=== PATIENT | male | born 1980 | race Caucasian/White ===

== ENCOUNTER 2018-08-01 16:23 | Emergency (ER) | payer SELFPAY ==
[~2018-08-01] VITALS: Ht 170.2 cm; Wt 80.0 kg
[~2018-08-01 16:23] MED LIST: BACTRIM DS1 TAB PO; CEPHALEXIN500 MG PO; FLEXERIL OR; LOPRESSOR100 MG OR; NAPROSYN500 MG OR; ULTRAM50 M1 PO
[2018-08-01] MEDS ORDERED: PERCOCET 10/31 COMBO PO (18:24)
[2018-08-01] MEDS ORDERED: AMOXICILLIN500 MG PO (18:24)
[2018-08-01 18:28] VITALS: BP 152/77
== END 2018-08-01 19:01 | disposition home or self-care (01) | DRG 159 ==
LOC: ED 16:23
PROC: 0C960ZZ Drainage of Lower Gingiva, Open Approach (ICD-10-PCS; principal; 2018-08-01)
DX: K04.7 Periapical abscess without sinus (principal); K02.9 Dental caries, unspecified; I10 Essential (primary) hypertension; F17.210 Nicotine dependence, cigarettes, uncomplicated

== ENCOUNTER 2020-09-29 15:22 | Emergency (ER) | payer SELFPAY ==
[~2020-09-29 15:22] MED LIST changes: +AMOXICILLIN500 MG PO; +PERCOCET 10/31 COMBO PO
[2020-09-29 17:19] LABS: HEMATOCRIT 41.8 % (39.0-50.0); HEMOGLOBIN 13.4 g/dl (14.0-18.0); IMMATURE GRANULOCYTES 0.7 % (0.0-5.0); MEAN CELL VOLUME 84.6 fL CALC (80.0-100.0); MEAN CORPUSCULAR HGB 27.1 pG CALC (26.0-32.0); MEAN CORPUSCULAR HGB CONC 32.1 g/dL CAL (32.0-36.0); NEUT# 2.32 thou/uL (1.82-7.42); RED BLOOD COUNT 4.94 mill/uL (4.70-6.10); RED CELL DISTRI WIDTH 14.1 % (11.5-15.5)
[2020-09-29 17:39] LABS: ALBUMIN 4.3 g/dL (3.2-5.0); ALKALINE PHOSPHATASE 66 u/l (38-126); ANION GAP 8 (6-22 (CALC)); BUN 11 mg/dL (9-20); BUN/CREATININE RATIO 18 (12-20 (CALC)); CARBON DIOXIDE 27 mmol/l (22-30); CHLORIDE 103 mmol/l (95-108); CREATININE 0.6 mg/dL (0.7-1.3); GFR > 60 ML/MIN (>=60 (CALC)); GFR FOR AFR.AMER. > 60 ML/MIN (>=60 (CALC)); POTASSIUM 4.4 mmol/l (3.5-5.1); SGOT/AST 59 u/l (17-59); SODIUM 134 mmol/l (137-146); TOTAL PROTEIN 8.1 g/dL (6.3-8.2)
[2020-09-29] MEDS ORDERED: BACTRIM DS1 TAB PO (18:09)
[2020-09-29] MEDS ORDERED: KEFLEX500 MG PO (18:09)
[2020-09-29 18:11] VITALS: BP 110/70
== END 2020-09-29 18:21 | disposition home or self-care (01) | DRG 603 ==
LOC: ED 15:22
DX: L03.116 Cellulitis of left lower limb (principal); L03.115 Cellulitis of right lower limb; S80.812A Abrasion, left lower leg, initial encounter; S80.811A Abrasion, right lower leg, initial encounter; I10 Essential (primary) hypertension; F17.210 Nicotine dependence, cigarettes, uncomplicated; X58.XXXA Exposure to other specified factors, initial encounter

== ENCOUNTER 2020-09-30 10:42 | Emergency (ER) | payer SELFPAY ==
[~2020-09-30 10:42] MED LIST changes: +KEFLEX500 MG PO
[2020-09-30 12:04] VITALS: BP 125/80
== END 2020-09-30 12:04 | disposition home or self-care (01) | DRG 603 ==
LOC: ED 10:42
DX: L03.116 Cellulitis of left lower limb (principal); L03.115 Cellulitis of right lower limb; I10 Essential (primary) hypertension; F17.210 Nicotine dependence, cigarettes, uncomplicated

== ENCOUNTER 2022-01-06 12:00 | Emergency (ER) | payer SELFPAY ==
[2022-01-06] VITALS (7 sets, daily range): BP systolic 120–157; BP diastolic 71–86
[~2022-01-06] VITALS: Ht 170.2 cm; Wt 95.5 kg
[2022-01-06 12:35] LABS: HEMATOCRIT 46.1 % (39.0-50.0); IMMATURE GRANULOCYTES 0.3 % (0.0-5.0); MEAN CELL VOLUME 81.2 fL CALC (80.0-100.0); MEAN CORPUSCULAR HGB 28.7 pG CALC (26.0-32.0); MEAN CORPUSCULAR HGB CONC 35.4 g/dL CAL (32.0-36.0); NEUT# 7.74 thou/uL (1.82-7.42); RED BLOOD COUNT 5.68 mill/uL (4.70-6.10); RED CELL DISTRI WIDTH 12.1 % (11.5-15.5)
[2022-01-06 12:44] LABS: HEMOGLOBIN 16.3 g/dl (14.0-18.0)
[2022-01-06 12:47] LABS: ALBUMIN 4.4 g/dL (3.2-5.0); ALKALINE PHOSPHATASE 72 u/l (38-126); ANION GAP 13 (6-22 (CALC)); BILIRUBIN, TOTAL 1.6 mg/dL (0.0-1.4); BUN 11 mg/dL (9-20); BUN/CREATININE RATIO 8 (12-20 (CALC)); CARBON DIOXIDE 26 mmol/l (22-30); CHLORIDE 101 mmol/l (95-108); CREATININE 1.3 mg/dL (0.7-1.3); GFR FOR AFR.AMER. > 60 ML/MIN (>=60 (CALC)); GFR OTHER RACES > 60 ML/MIN (>=60 (CALC)); SGOT/AST 24 u/l (17-59); SODIUM 136 mmol/l (137-146); TOTAL PROTEIN 7.7 g/dL (6.3-8.2)
[2022-01-06 14:58] LABS: URINE BLOOD DIPSTICK MODERATE (NEGATIVE); URINE COLOR YELLOW; URINE GLUCOSE - DIPSTICK NEGATIVE (NEGATIVE); URINE KETONE TRACE mg/dL (NEGATIVE); URINE LEUK ESTERASE NEGATIVE (NEGATIVE); URINE PROTEIN - DIPSTICK TRACE mg/dL (NEG-TRACE); URINE SPECIFIC GRAVITY >=1.030
[2022-01-06 15:12] LABS: URINE BILIRUBIN - DIPSTICK SMALL (NEGATIVE); URINE NITRITE - DIPSTICK NEGATIVE (Negative); URINE WBC 0-2 WBC/hpf (0-5)
[2022-01-06] MEDS ORDERED: LORTAB 7.57.5 MG PO (15:19)
[2022-01-06] MEDS ORDERED: TAMSULOSIN0.4 MG PO (15:19)
[2022-01-06] MEDS ORDERED: NAPROXEN500 MG PO (15:19)
== END 2022-01-06 15:40 | disposition home or self-care (01) | DRG 694 ==
LOC: ED 12:00
PROVIDERS: Family Medicine
DX: N20.1 Calculus of ureter (principal); I10 Essential (primary) hypertension; F17.200 Nicotine dependence, unspecified, uncomplicated; Z87.442 Personal history of urinary calculi